=== PATIENT | female | born 1955 | race African-American/Black ===

== ENCOUNTER 2025-06-17 21:54 | Emergency (ER) | payer OTHER ==
[~2025-06-17] VITALS: Ht 162.6 cm; Wt 41.0 kg
[2025-06-17 22:11] VITALS: O2SAT 95
[2025-06-17 23:10] LABS: BASOPHILS % 0.6 % (0.0-2.0); EOSINOPHILS % 2.4 % (0.0-5.0); HEMATOCRIT. 35.7 % (36.0-48.0); HEMOGLOBIN. 11.6 g/dL (12.0-16.0); LYMPHOCYTES % 11.5 % (20.0-50.0); MEAN PLATELET VOLUME 7.6 fl (7.4-10.4); MONOCYTES % 12.5 % (2.0-8.0); NEUTROPHILS % 73.0 % (40.0-76.0); PLATELET 318 x1000/uL (130-400); RED BLOOD CELL COUNT 4.11 mill/uL (4.2-5.4); RED CELL DISTRIBUTION WIDTH 16.9 % (11.6-14.6)
[2025-06-17] MEDS: HALOPERIDOL LACTATE 5MG/ML VIAL IM ONE (23:18)
[2025-06-17 23:21] LABS: CREATININE 1.1 mg/dL (0.6-1.0); PROTEIN TOTAL 7.4 g/dL (6.0-8.3); TROPONIN I HIGH SENSITIVITY 9 ng/L (3.0-34); UREA NITROGEN BLOOD 15 mg/dL (9-23)
[2025-06-17 23:22] LABS: ASPARTATE AMINOTRANSFERASE 18 IU/L (<34)
[2025-06-17 23:23] LABS: BILIRUBIN TOTAL 0.4 mg/dL (0.1-1.0)
[2025-06-18] MEDS: SODIUM CHLORIDE 0.9% (SEPSIS BOLUS) IV ONE (01:55)
[2025-06-18] MEDS: PIPERACILLIN/TAZO 3.375G/50ML 50 ML IV ONE (03:06)
[2025-06-18] MEDS: VANCOMYCIN 1G PREMIX 200 ML IV ONE (03:29)
[2025-06-18 05:32] LABS: CLARITY URINE CLEAR (CLEAR); COLOR URINE YELLOW (YELLOW); GLUCOSE URINE NEGATIVE (NEGATIVE); KETONES URINE NEGATIVE (NEGATIVE); LEUKOCYTE ESTERASE URINE 2+ (NEGATIVE); NITRITE URINE NEGATIVE (NEGATIVE); OCCULT BLOOD URINE 1+ (NEGATIVE); PH URINE 5.5 (4.5-8.0); PROTEIN URINE TRACE (NEGATIVE); SPECIFIC GRAVITY URINE 1.014 (1.005-1.030); UROBILINOGEN URINE 0.2 E.U./dL (0.2-1.0)
[2025-06-18 05:41] VITALS: BP 148/79; PULSE 61; RESP 17; TEMP 37.6; O2SAT 97
[2025-06-18 06:04] LABS: BACTERIA URINE 1+; RBC URINE 0-2 /hpf (0-2); SQUAMOUS EPITHELIAL CELL URINE NONE SEEN /lpf (RARE/1+)
[2025-06-18 06:05] LABS: WBC URINE 0-2 /hpf (0-2)
== END 2025-06-18 06:02 | disposition short-term general hospital (02) ==
LOC: ER 21:54 → CMPBEDREQ 06-18 07:41
DX: R55 Syncope and collapse (principal); F03.90 Unspecified dementia, unspecified severity, without behavioral disturbance, psychotic disturbance, mood disturbance, and anxiety; Z20.822 Contact with and (suspected) exposure to COVID-19; Z79.899 Other long term (current) drug therapy
CPT/HCPCS: 80053; 85025; 84484; 36415 ×2; 71045; 70450; 93005 ×2; 96372; 99291; 81003; 83605; 87040; 87086; 87186; 87077; 84145; 96367; 96361; 96365; 87426; J1630; Z7610; J2543; J3373; J7030